=== PATIENT | female | born 2000 ===

== ENCOUNTER 2021-04-27 09:53 | Outpatient (CLI) | payer OTHER | END 2021-04-27 10:31 | disposition home or self-care (01) | LOC: PRENATAL 09:53 | PROVIDERS: ATTEND Obstetrics & Gynecology Maternal & Fetal Medicine | DX: O35.0XX0 Maternal care for (suspected) central nervous system malformation in fetus, not applicable or unspecified (principal) ==

== ENCOUNTER 2021-07-17 10:22 | Outpatient (CLI) | payer OTHER | END 2021-07-17 12:45 | disposition home or self-care (01) | LOC: PRENATAL 10:22 | PROVIDERS: ATTEND Obstetrics & Gynecology Maternal & Fetal Medicine | DX: O35.0XX0 Maternal care for (suspected) central nervous system malformation in fetus, not applicable or unspecified (principal); O26.849 Uterine size-date discrepancy, unspecified trimester; O34.219 Maternal care for unspecified type scar from previous cesarean delivery; O28.1 Abnormal biochemical finding on antenatal screening of mother; Z3A.33 33 weeks gestation of pregnancy ==